=== PATIENT | male | born 1985 ===

== ENCOUNTER 2018-01-03 23:10 | Emergency (ER) | payer SELFPAY ==
[2018-01-03 23:42] VITALS: RESP 20
--- NOTE | 2018-01-03 23:54 | C.PDOC ---
History Of Present Illness 32 year old male is brought to the ED by EMS for alcohol intoxication. Patient admits to drinking alcohol tonight. Patient denies SI/HI, hallucinations, CP, SOB, trauma, fall, injury. Time Seen by Provider: 01/03/18 23:53 Chief Complaint (Nursing): Substance Abuse History Per: Patient, EMS History/Exam Limitations: intoxication Onset/Duration Of Symptoms: Days Current Symptoms Are (Timing): Still Present Suicide/Self Injury Attempted (Context): None Modifying Factor(s): Alcohol Associated Symptoms: denies: Depression, Suicidal Thoughts, Suicidal Plan Recent travel outside of the [place]: No Additional History Per: Patient, EMS Past Medical History Reviewed: Historical Data, Nursing Documentation, Vital Signs Vital Signs: Last Vital Signs Temp 97.4 F L 01/03/18 23:39 Pulse 78 01/04/18 03:41 Resp 20 01/04/18 03:41 BP 132/70 01/04/18 03:41 Pulse Ox 99 01/04/18 03:41 - Medical History PMH: No Chronic Diseases Surgical History: No Surg Hx Family History: States: Unknown Family Hx - Social History Hx Alcohol Use: Yes Hx Substance Use: No - Immunization History Hx Tetanus Toxoid Vaccination: No Hx Influenza Vaccination: No Hx Pneumococcal Vaccination: No Review Of Systems Constitutional: Negative for: Fever, Chills Cardiovascular: Negative for: Chest Pain Respiratory: Negative for: Cough, Shortness of Breath Gastrointestinal: Negative for: Nausea, Vomiting, Abdominal Pain Skin: Negative for: Rash Psych: Negative for: Depression, Suicidal ideation Physical Exam - Physical Exam Appears: Non-toxic, No Acute Distress Skin: Warm, Dry Head: Normacephalic Eye(s): bilateral: Normal Inspection Neck: Supple Chest: Symmetrical Cardiovascular: Rhythm Regular Respiratory: No Rales, No Rhonchi, No Wheezing Gastrointestinal/Abdominal: Soft, No Tenderness, No Guarding, No Rebound Extremity: No Tenderness, No Swelling Extremity: Bilateral: Atraumatic, Normal Color And Temperature, Normal ROM Neurological/Psych: Oriented x3, Normal Speech Gait: Steady ED Course And Treatment O2 Sat by Pulse Oximetry: 99 (ON RA) Pulse Ox Interpretation: Normal Reevaluation Time: 05:01 Reassessment Condition: Improved Disposition Counseled Patient/Family Regarding: Studies Performed, Diagnosis - Disposition Referrals: [facility] [Outside] Disposition: HOME/ ROUTINE Disposition Time: 23:53 Condition: FAIR Instructions: Alcohol Abuse and Alcoholism (DC) Forms: [employer] (Swedish) - Clinical Impression Clinical Impression: Alcohol intoxication - Scribe Statement The provider has reviewed the documentation as recorded by the Scribe [facility] All medical record entries made by the Scribe were at my direction and personally dictated by me. I have reviewed the chart and agree that the record accurately reflects my personal performance of the history, physical exam, medical decision making, and the department course for this patient. I have also personally directed, reviewed, and agree with the discharge instructions and disposition.
[2018-01-04 05:08] VITALS: BP 130/70; PULSE 81; TEMP 98.5; O2SAT 98
== END 2018-01-04 05:08 | disposition home or self-care (01) ==
LOC: C.ER 23:10
DX: F10.129 Alcohol abuse with intoxication, unspecified (principal)